=== PATIENT | male | born 1960 | race Caucasian/White ===

== ENCOUNTER 2017-07-19 09:10 | Observation (INO) | payer OTHER ==
[2017-07-19] MEDS ORDERED: NS 1,000 ML IV ONE (09:28)
--- NOTE | 2017-07-19 09:32 | EDPHY ---
General - History Smoking Status: Never smoked Narrative: CHIEF COMPLAINT: Abdominal pain HISTORY OF PRESENT ILLNESS: Patient complains of abdominal pain that started last night around 9:00 p.m.. This was sudden onset. Constant duration. [id number], currently 6/10. Worse with Valsalva and movement. Improved at rest. Does not radiate. One episode of nausea this morning. No constipation or diarrhea that he knows of. No bloody stools or emesis. No sweating. No chest pain or shortness of breath. No recent trauma or injury. No history of abdominal pathology or surgery. No chest pain or shortness of breath. No other associated complaints or modifying factors REVIEW OF SYSTEMS: Ten systems reviewed and are negative unless otherwise noted in the HPI PCP: Dr. Louis SPECIALISTS: None PAST MEDICAL HISTORY: Reflux, hypertension PAST SURGICAL HISTORY: Endoscopy colonoscopy 2008 SOCIAL HISTORY: Nonsmoker. Alcohol user. No drug use. Works at a [employer] locally FAMILY HISTORY: Noncontributory EXAMINATION General Appearance: Alert, no distress Head: normocephalic, atraumatic Eyes: Pupils equal and round, no conjunctival pallor or injection ENT, Mouth: Mucous membranes moist. Airway patent Neck: Normal inspection, supple, non-tender Respiratory: Lungs are clear to auscultation. No wheeze, rhonchi or crackles Cardiovascular: Regular rate and rhythm. No murmur Gastrointestinal: Bowel sounds are symmetric. Abdomen is soft and nondistended. There is tenderness near the umbilicus with palpable mass or hernia. Too painful to attempt to reduce. Bowel sounds auscultated in this area. No guarding. No tympany. No rigidity. No CVA tenderness. Neurological: GCS 15. A&O, nonfocal, normal gait Skin: Warm and dry, no rash. No petechiae or purpura. No cellulitis. Extremities: Nontender, no pedal edema Psychiatric: Mood and affect normal DIFFERENTIAL DIAGNOSES: Including but not limited to periumbilical hernia, ventral hernia, abdominal mass, colitis, diverticulitis, gastritis MDM: 9:28 a.m. Abdominal pain with palpable mass or hernia near the umbilicus. He is in no acute distress. Vital signs are stable. He is declining pain medication at this time. CT scan of the abdomen pelvis has been ordered. IV placement, laboratory studies, IV fluid ordered. 10:00 a.m. Laboratory studies unremarkable. CT scan pending. 10:[address] scan reviewed with Dr. Padilla. Without the aid of the radiologist, there appears to be incarcerated periumbilical hernia. I re-evaluated the patient. He is resting comfortably. He is NPO since 7:00 p.m. last night. General surgery will be consulted. Lactic acid ordered 10:25 a.m. Case discussed with Dr. Amador. He will provide consultation on the patient in the emergency department. 10:[address] Amador is at bedside with the patient. He has reviewed the CT and interprets this as omentum only, no bowel in the defect. 10:59 a.m. Contacted by radiologist Dr. Wadr. CT scan does show omentum in the hernia just above the umbilicus. There is an area of air suggesting possible necrosis. I informed the patient has already been evaluated by General surgery and he plans to take the patient to the operating room for surgical reduction of the hernia. 11:20 a.m. Patient re-evaluated. Resting comfortably in no acute distress. He will be taken to the operating room for surgical primary doctor Jame. He is admitted to observation status in stable condition. SUPERVISION: Patient was independently examined, but I discussed the case with my secondary supervising physician Dr. Padilla ([facility]) Medical Decision Making: I have discussed elevated this patient with Ramirez jiménez. I have evaluated CT scan. This patient has an abdominal hernia with bowel incarcerated. Surgeries been called. (Davian Padilla) - Objective Vital Signs: Initial Vital Signs Temperature (C) 98.4 F 07/19/17 09:12 Heart Rate 70 07/19/17 09:12 Respiratory Rate 16 07/19/17 09:12 Blood Pressure 142/95 H 07/19/17 09:12 O2 Sat (%) 94 07/19/17 09:12 O2 Delivery Mode Room Air Allergies/Adverse Reactions: No Known Allergies Allergy (Verified 07/19/17 09:11) Home Medications: Medication Instructions Recorded Aspirin [Aspirin 81mg (*)] 81 mg PO DAILY 12/22/13 Nebivolol HCl [Bystolic 5 mg (*)] 5 mg PO DAILY 12/22/13 Omeprazole [Prilosec 20 mg] 20 mg PO DAILY 12/22/13 Laboratory Results: Laboratory Results 07/19/17 09:30 07/19/17 09:30 07/19/17 07/19/17 07/19/17 10:25 09:50 09:30 WBC RBC Hgb POC Hgb Hct POC Hct MCV MCH MCHC RDW Plt Count MPV Neut % (Auto) Lymph % (Auto) Barrow % (Auto) Eos % (Auto) Baso % (Auto) Nucleat RBC Rel Count Absolute Neuts (auto) Absolute Lymphs (auto) Absolute Monos (auto) Absolute Eos (auto) Absolute Basos (auto) Absolute Nucleated RBC Immature Gran % Immature Gran # PT INR APTT VBG Lactic Acid 0.8 mmol/L mmol/L (0.7-2.1) POC Sodium Sodium 143 mEq/L mEq/L (134-144) POC Potassium Potassium 4.1 mEq/L mEq/L (3.5-5.2) POC Chloride Chloride 106 mEq/L mEq/L (97-110) Carbon Dioxide 24 mEq/l mEq/l (22-31) Anion Gap 13 mEq/L mEq/L (8-16) POC BUN BUN 13 mg/dL mg/dL (7-23) Creatinine 0.8 mg/dL mg/dL (0.7-1.3) POC Creatinine Estimated GFR > 60 Glucose 107 mg/dL H mg/dL (70-100) POC Glucose Calcium 9.8 mg/dL mg/dL (8.5-10.4) Total Bilirubin 1.2 mg/dL mg/dL (0.1-1.4) Conjugated Bilirubin 0.2 mg/dL mg/dL (0.0-0.5) Unconjugated Bilirubin 1.0 mg/dL mg/dL (0.0-1.1) AST 26 IU/L IU/L (17-59) ALT 49 IU/L IU/L (21-72) Alkaline Phosphatase 53 IU/L IU/L (38-126) Total Protein 7.2 g/dL g/dL (6.3-8.2) Albumin 4.5 g/dL g/dL (3.5-5.0) Lipase 85 IU/L IU/L (23-300) Urine Color PALE YELLOW Urine Appearance CLEAR Urine pH 6.0 (5.0-7.5) Ur Specific Garnett 1.006 (1.002-1.030) Urine Protein NEGATIVE (NEGATIVE) Urine Ketones TRACE H (NEGATIVE) Urine Blood 1+ H (NEGATIVE) Urine Nitrate NEGATIVE (NEGATIVE) Urine Bilirubin NEGATIVE (NEGATIVE) Urine Urobilinogen NEGATIVE EU EU (0.2-1.0) Ur Leukocyte Esterase NEGATIVE (NEGATIVE) Urine RBC 1-3 /hpf /hpf (0-3) Urine WBC 1-3 /hpf /hpf (0-3) Ur Epithelial Cells NONE SEEN /lpf /lpf (NONE-1+) Urine Mucus TRACE /lpf /lpf (NONE-1+) Urine Glucose NEGATIVE (NEGATIVE) 07/19/17 07/19/17 07/19/17 09:30 09:30 09:27 WBC 6.57 10^3/uL 10^3/uL (3.80-9.50) RBC 4.91 10^6/uL 10^6/uL (4.40-6.38) Hgb 15.3 g/dL g/dL (13.7-17.5) POC Hgb 15.0 gm/dL gm/dL (13.7-17.5) Hct 43.0 % % (40.0-51.0) POC Hct 44 % % (40-51) MCV 87.6 fL fL (81.5-99.8) MCH 31.2 pg pg (27.9-34.1) MCHC 35.6 g/dL g/dL (32.4-36.7) RDW 13.4 % % (11.5-15.2) Plt Count 228 10^3/uL 10^3/uL (150-400) MPV 9.2 fL fL (8.7-11.7) Neut % (Auto) 72.8 % % (39.3-74.2) Lymph % (Auto) 20.2 % % (15.0-45.0) Barrow % (Auto) 4.3 % L % (4.5-13.0) Eos % (Auto) 1.4 % % (0.6-7.6) Baso % (Auto) 0.8 % % (0.3-1.7) Nucleat RBC Rel Count 0.0 % % (0.0-0.2) Absolute Neuts (auto) 4.79 10^3/uL 10^3/uL (1.70-6.50) Absolute Lymphs (auto) 1.33 10^3/uL 10^3/uL (1.00-3.00) Absolute Monos (auto) 0.28 10^3/uL L 10^3/uL (0.30-0.80) Absolute Eos (auto) 0.09 10^3/uL 10^3/uL (0.03-0.40) Absolute Basos (auto) 0.05 10^3/uL 10^3/uL (0.02-0.10) Absolute Nucleated RBC 0.00 10^3/uL 10^3/uL (0-0.01) Immature Gran % 0.5 % % (0.0-1.1) Immature Gran # 0.03 10^3/uL 10^3/uL (0.00-0.10) PT 12.6 SEC SEC (12.0-15.0) INR 0.92 (0.83-1.16) APTT 25.1 SEC SEC (23.0-38.0) VBG Lactic Acid POC Sodium 140 mEq/L mEq/L (134-144) Sodium POC Potassium 3.8 mEq/L mEq/L (3.3-5.0) Potassium POC Chloride 104 mEq/L mEq/L (97-110) Chloride Carbon Dioxide Anion Gap POC BUN 13 mg/dL mg/dL (7-23) BUN Creatinine POC Creatinine 0.8 mg/dL mg/dL (0.7-1.3) Estimated GFR Glucose POC Glucose 109 mg/dL H mg/dL (70-100) Calcium Total Bilirubin Conjugated Bilirubin Unconjugated Bilirubin AST ALT Alkaline Phosphatase Total Protein Albumin Lipase Urine Color Urine Appearance Urine pH Ur Specific Garnett Urine Protein Urine Ketones Urine Blood Urine Nitrate Urine Bilirubin Urine Urobilinogen Ur Leukocyte Esterase Urine RBC Urine WBC Ur Epithelial Cells Urine Mucus Urine Glucose Medications Given: Discontinued Medications Hydromorphone HCl (Dilaudid) 1 mg IVP EDNOW ONE Stop: 07/19/17 10:31 Last Admin: 07/19/17 10:35 Dose: 1 mg Sodium Chloride (Ns) 1,000 mls @ 0 mls/hr IV EDNOW ONE; Wide Open PRN Reason: Protocol Stop: 07/19/17 09:29 Last Admin: 07/19/17 09:31 Dose: 1,000 mls Point of Care Test Results: 07/19/17 09:27 POC Sodium 140 POC Potassium 3.8 POC Chloride 104 POC BUN 13 POC Creatinine 0.8 POC Glucose 109 H Departure - Departure Disposition: [facility] Inpatient Acute Clinical Impression: Periumbilical hernia Condition: Good Referrals: Jody Louis MD [Primary Care Provider] - As per Instructions
[2017-07-19 09:37] LABS: % IMMATURE GRANULYOCYTES 0.5 % (0.0-1.1); ABSOLUTE IMMATURE GRANULOCYTES 0.03 10^3/uL (0.00-0.10); ADD DIFF? NO; ADD MORPH? NO; ADD SCAN? NO; ATYPICAL LYMPHOCYTE FLAG 0 (0-99); FRAGMENT RBC FLAG 0 (0-99); HEMOGLOBIN 15.3 g/dL (13.7-17.5); LEFT SHIFT FLG 0 (0-99); LIPEMIA HEMOLYSIS FLAG 90 (0-99); MEAN CELL HEMOGLOBIN 31.2 pg (27.9-34.1); MEAN CELL HEMOGLOBIN CONCENTR. 35.6 g/dL (32.4-36.7); MEAN CELL VOLUME 87.6 fL (81.5-99.8); MEAN PLATELET VOLUME 9.2 fL (8.7-11.7); PLATELET CLUMPS FLAG 0 (0-99); PLATELET COUNT 228 10^3/uL (150-400); RED BLOOD CELL COUNT 4.91 10^6/uL (4.40-6.38); RED CELL DISTRIBUTION WIDTH 13.4 % (11.5-15.2)
[2017-07-19] MEDS ORDERED: IOPAMIDOL (ISOVUE-300) 100 ML BTL ONE (09:40)
[2017-07-19 09:47] LABS: INR 0.92 (0.83-1.16); PROTIME(PATIENT) 12.6 SEC (12.0-15.0)
[2017-07-19 09:48] LABS: APTT 25.1 SEC (23.0-38.0)
[2017-07-19 09:51] LABS: ALANINE AMINOTRANSFERASE 49 IU/L (21-72); ALBUMIN 4.5 g/dL (3.5-5.0); ALKALINE PHOSPHATASE 53 IU/L (38-126); ANION GAP 13 mEq/L (8-16); ASPARTATE AMINOTRANSFERASE 26 IU/L (17-59); BILIRUBIN,TOTAL 1.2 mg/dL (0.1-1.4); BILIRUBIN-CONJUGATED 0.2 mg/dL (0.0-0.5); CALCIUM 9.8 mg/dL (8.5-10.4); CARBON DIOXIDE 24 mEq/l (22-31); CHLORIDE 106 mEq/L (97-110); CREATININE 0.8 mg/dL (0.7-1.3); GLOMERULAR FILTRATION RATE > 60; GLUCOSE 107 mg/dL (70-100); POTASSIUM 4.1 mEq/L (3.5-5.2); SODIUM 143 mEq/L (134-144); TOTAL PROTEIN 7.2 g/dL (6.3-8.2)
[2017-07-19 09:59] LABS: COLOR PALE YELLOW; LEUKOCYTE ESTERASE,URINE NEGATIVE (NEGATIVE); NITRITE,URINE NEGATIVE (NEGATIVE)
[2017-07-19 10:00] LABS: MUCUS TRACE /lpf (NONE-1+)
[2017-07-19] MEDS ORDERED: HYDROmorphONE/DILAUDID 1 MG/ML INJ IVP ONE (10:30)
[2017-07-19] MEDS ORDERED: ONDANSETRON 4 MG/2 ML VIAL IVP PRN (11:10)
[2017-07-19] MEDS ORDERED: ceFAZolin 2 GM/DEXTROSE 100 ML IV ONE ×2 (11:20→12:45)
[2017-07-19] MEDS ORDERED: HYDROmorphONE/DILAUDID 1 MG/ML INJ IVP PRN (11:21)
[2017-07-19] MEDS ORDERED: LR 1,000 ML IV SCH (11:30)
[2017-07-19] MEDS ORDERED: KETOROLAC 30 MG/1 ML SDV IVP SCH (12:00)
--- NOTE | 2017-07-19 12:18 | GHP ---
[f rep st] PREOP HISTORY AND PHYSICAL DATE OF ADMISSION: 07/19/2017 ADMITTING DIAGNOSIS: Incarcerated, strangulating epigastric hernia. HISTORY: The patient is a 56-year-old male, who had the onset of epigastric pain last evening at 9:00 p.m. He became aware of a lump later on in the evening. He last ate at 7:00 p.m. yesterday, and he had pizza. The pain had increased overnight and prompted his visit to the emergency room. In the emergency room, a CT scan was performed and showed an incarcerated, strangulating low epigastric hernia. I was asked to come see the patient. I did not feel comfortable trying to reduce it and I will plan operative intervention. SOCIAL HISTORY: He is a nonsmoker. He drinks a glass of wine or a bottle of beer per day. ALLERGIES: He has no known drug allergies. 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 He takes Bystolic 5 mg a day for both issues. He has reflux and takes 20 mg of Prilosec every day. He uses an 81 mg aspirin. His only prior surgery has been a bilateral inguinal hernia repair at age 5. There is no history of rheumatic fever, tuberculosis, hepatitis, or transfusions. REVIEW OF SYSTEMS: As mentioned above, he has had hypertension for 5 years. The familial aortic enlargement is present in his mother and maternal grandmother. He feels it that may possibly be present in his sister, but is not present in his brother. He wears lenses for visual correction. He does have tinnitus. GERD occurs nightly at ~2:00 a.m., and it is associated with a cough. I have suggested he try to avoid eating or drinking water or alcohol within 4 hours of retiring at night. There are no limits on his activity or history of steroid use. PHYSICAL EXAMINATION: GENERAL: He is awake, alert, pleasant, and interactive. HEENT: His skull is normocephalic and atraumatic. His pupils are equal, round, and reactive. NECK: His thyroid is not enlarged. There are no carotid bruits. LYMPHATICS: There is no cervical, supraclavicular, axillary, or inguinal lymph and lymphadenopathy. LUNGS: Clear to auscultation. CARDIAC: Exam shows S1 and S2 to be normal, with a normal split of S2. There are no murmurs, rubs, or gallops. ABDOMEN: Soft and nontender, except for a firm plum -sized mass, which is quite tender just cephalad to the umbilicus. There is a small umbilical hernia present as well. He has normoactive bowel sounds. EXTREMITIES: Otherwise, unremarkable. PLAN: I will plan to proceed with an open repair of his incarcerated hernia using mesh if needed. I have indicated to him that even though his aortic arch aneurysm has been stable for the past 6 years, the fact that we will induce some collagenase activity with repair of the hernia, I would suggest that he should consider re-evaluation of his aneurysm at about a month. /[id number]/MODL MTDD
[2017-07-19] MEDS ORDERED: ceFAZolin 2 GM/SWFI 2 GM/20 ML SYR IVP ONE (13:00)
--- NOTE | 2017-07-19 13:00 | PDANEPAE ---
ANE History of Present Illness 56 YO MALE WITH INCARCERATED EPIGASTRIC HERNIA. ANE Past Medical History - Cardiovascular History Hx Hypertension: Yes Cardiovascular History Comment: ascending aorta dilation 4.5 cm - Pulmonary History Hx Oxygen in Use at Home: No Hx Sleep Apnea: No - Endocrine History Hx Diabetes: No - Renal History Hx Renal Disorders: No - Liver History Hx Hepatic Disorders: No - GI History GERD: moderate (GERD - takes prilosec ) - Chronic Pain History Chronic Pain: No ANE Review of Systems Review of systems is: negative Review of Systems: - Systems Cardiac: Reports: no symptoms Respiratory: Reports: no symptoms Gastrointestinal: Reports: abdominal pain ANE Patient History - Allergies Allergies/Adverse Reactions: No Known Allergies Allergy (Verified 07/19/17 09:11) - Home Medications Home Medications: Aspirin [Aspirin 81mg (*)] 81 mg PO DAILY 12/22/13 [Last Taken 07/18/17] Nebivolol HCl [Bystolic 5 mg (*)] 5 mg PO DAILY 12/22/13 [Last Taken 07/18/17] Omeprazole [Prilosec 20 mg] 20 mg PO Q2D 12/22/13 [Last Taken 12/21/13] - NPO status NPO Since - Liquids (Date): 07/19/17 NPO Since - Liquids (Time): 07:00 (tea with milk) NPO Since - Solids (Date): 07/18/17 NPO Since - Solids (Time): 19:00 - Anes Hx Anes Hx: no prior problems - Smoking Hx Smoking Status: Never smoked Marijuana use: No - Alcohol Use Alcohol Use: Occasionally (1 / day) - Family Anes Hx Family Anes Hx: none ANE Labs/Vital Signs - Labs Result Diagrams: 07/19/17 09:30 07/19/17 09:30 - Vital Signs Blood Pressure: 136/92 Heart Rate: 76 Respiratory Rate: 16 O2 Sat (%): 94 Height: 187.96 cm Weight: 95.254 kg ANE Physical Exam - Airway Neck exam: FROM Mallampati Score: Class 2 Mouth exam: normal dental/mouth exam - Pulmonary Pulmonary: clear to auscultation - Cardiovascular Cardiovascular: regular rate and rhythym - ASA Status ASA Status: II ANE Anesthesia Plan Anesthesia Plan: general endotracheal anesthesia
[2017-07-19] MEDS ORDERED: PROPOFOL/EMULSION 500 MG/50 ML BOTTLE IV ONE (13:09)
[2017-07-19] MEDS ORDERED: LIDOCAINE 2% 5 ML SDV ONE (13:10)
[2017-07-19] MEDS ORDERED: DEXAMETHASONE 4 MG/ML VIAL ONE ×2 (13:10)
[2017-07-19] MEDS ORDERED: ROCURONIUM 50 MG/5 ML VIAL ONE (13:10)
[2017-07-19] MEDS ORDERED: LIDOCAINE 1% 300 MG/30 ML SDV ONE (13:26)
[2017-07-19] MEDS ORDERED: SUGAMMADEX SODIUM 200 MG/2 ML VIAL IVP ONE (13:40)
[2017-07-19] MEDS ORDERED: KETOROLAC 30 MG/1 ML SDV ONE (13:41)
[2017-07-19] MEDS ORDERED: ONDANSETRON 4 MG/2 ML VIAL ONE (13:41)
[2017-07-19] MEDS ORDERED: BUPIVACAINE 0.25% 30 ML SDV ONE (13:44)
[2017-07-19] MEDS ORDERED: ALBUTEROL 3 ML DEYVIAL IH PRN (13:46)
[2017-07-19] MEDS ORDERED: NALOXONE HCL 0.4 MG/ML INJ IVP PRN (13:46)
[2017-07-19] MEDS ORDERED: OXYCODONE/APAP 5/325 TAB PO PRN (13:46)
[2017-07-19] MEDS ORDERED: LABETALOL HCL 5 MG/ML 20 ML MDV IVP PRN (13:46)
[2017-07-19] MEDS ORDERED: ACETAMINOPHEN 500 MG TAB PO PRN (13:46)
[2017-07-19] MEDS ORDERED: PROMETHAZINE HCL 25 MG/ML INJ IVP PRN (13:46)
[2017-07-19] MEDS ORDERED: ACETAMINOPHEN 325 MG TAB PO SCH (14:00)
[2017-07-19] MEDS ORDERED: ACETAMINOPHEN 500 MG TAB PO SCH (14:00)
--- NOTE | 2017-07-19 14:11 | POSTANESTH ---
Post Anesthetic Evaluation Cardiovascular Status: Normal, Stable Respiratory Status: Normal, Stable Level of Consciousness/Mental Status: Can Participate in Eval, Mildly Sleepy, Arousable Pain Control: Adequate, Prn Tx Ordered Nausea/Vomiting Control: Adequate, Prn Tx Ordered Complications Possibly Related to Anesthesia: None Noted
--- NOTE | 2017-07-19 14:37 | POSTOPPROG ---
Post Op Note Date of Operation: 07/19/17 Surgeon: Trevon Amador Anesthesia: GET(General Endotracheal) Pre-op Diagnosis: incarcerated, strangulated low epigastric hernia Post-op Diagnosis: incarcerated, strangulated low epigastric hernia Indication: incarcerated, strangulated low epigastric hernia Procedure: open repair of incarcerated, strangulated low epigastric hernia Findings: incarcerated, strangulated low epigastric hernia Inf/Abcess present in the surg proc area at time of surgery?: No EBL: Minimal Total fluids administered: 1000cc Complications: none Specimen(s): herniated fat
[2017-07-19 14:44] VITALS: PULSE 67; TEMP 98.2
[2017-07-19 14:55] VITALS: RESP 13
--- NOTE | 2017-07-19 16:05 | GOP ---
[f rep st] OPERATIVE REPORT DATE OF OPERATION: 07/19/2017 SURGEON: Trevon Amador MD ANESTHESIA: General endotracheal. PREOPERATIVE DIAGNOSIS: Incarcerated, strangulated low epigastric hernia fatty hernia. POSTOPERATIVE DIAGNOSIS: Incarcerated, strangulated low epigastric hernia fatty hernia . PROCEDURE PERFORMED: Open repair of incarcerated, strangulated low epigastric fatty hernia. FINDINGS: Incarcerated, strangulated low epigastric hernia fatty hernia. SPECIMENS: Necrotic fat. ESTIMATED BLOOD LOSS: Minimal. INDICATIONS: Incarcerated, strangulated low epigastric hernia. DESCRIPTION OF PROCEDURE: The patient was placed on the operating table in supine position. After induction of adequate general endotracheal anesthesia, the abdomen was carefully clipped, prepped, and draped. A surgical time out was performed. A vertical midline incision was planned just cephalad to the umbilicus. Note is made there is an easily reducible very small umbilical hernia noted. The skin was anesthetized with 1% Xylocaine. The skin was sharply incised. Incision was deepened with Bovie electrocautery. The hernia sac was identified and entered. The plum-sized herniated fat was cleared circumferentially down to the fascial defect. Several pieces of necrotic fat noted. There are in fact 2 separate pieces of herniated fat through the same fascial defect. The first was carefully cross clamped close to the fascial level. It was divided with cautery distal to the clamp and a suture ligature of 2-0 Vicryl was used to secure it. It was then released and allowed to retract into the abdominal space. The larger specimen was carefully cleared circumferentially and cross clamped as well. It too was transected with electrocautery. A suture ligature of 2-0 Vicryl was used. It was allowed to retract through the fascial defect. The transverse ellipse of the fascial defect was closed with 4 simple sutures of #0 PDS. All 4 were placed. The lateral 2 were tied and then the medial 2 were tied. This resulted in excellent closure. Fascial injection with a 0.25% Marcaine was carried out (16 cc was used in the fascia and in the skin combined) . The wound was well irrigated. Rich fascia was approximated with 3 interrupted sutures of #3-0 Vicryl. The dermis was approximated with 3 interrupted sutures of #3-0 Vicryl. Running subcuticular suture of 4-0 PDS was used. Dermabond was used to complete the skin closure.. The patient was transferred to recovery in stable and satisfactory condition. FLUIDS ADMINISTERED: 100 cc. COMPLICATIONS: None. /[id number]/MODL MTDD
[2017-07-19 16:13] VITALS: BP 119/70; O2SAT 95
== END 2017-07-19 16:17 | disposition home or self-care (01) ==
PROVIDERS: ADMIT Surgery; ATTEND Surgery
PROC: 0WQF0ZZ Repair Abdominal Wall, Open Approach (ICD-10-PCS; principal; 2017-07-19 13:00)
DX: K43.6 Other and unspecified ventral hernia with obstruction, without gangrene (principal); I10 Essential (primary) hypertension; I71.2 Thoracic aortic aneurysm, without rupture; K21.9 Gastro-esophageal reflux disease without esophagitis; Z79.82 Long term (current) use of aspirin
CPT/HCPCS: 49572; 74177; G0378; 82947-QW; 96374; J0690; J1100; J1170; J1885; J2405; J2704; Q9967

== ENCOUNTER → 2019-01-11 | Outpatient (CLI) | payer OTHER | LOC: FIMAGING 15:51 ==